=== PATIENT | female | born 1965 | race Caucasian/White ===

== ENCOUNTER → 2025-02-24 | Outpatient (CLI) | payer MEDICAID, SELFPAY ==
--- NOTE | 2025-02-24 11:45 | XR_ITS ---
Examination: Screening digital mammography, bilateral Computer aided detection 3-D breast Tomosynthesis, bilateral Date and time of exam: February 24, 2025 1147 hours Compared to mammograms dating to November 09, 2015 Indication: Screening Technique: Nonmagnified MLO, CC views of the breasts to been obtained, reconstructed from 3-D Tomosynthesis images. R2 computer aided detection program utilized for evaluation of suspicious masses and/or abnormal calcifications. 3-D Tomosynthesis images obtained. Findings: Scattered areas of fibroglandular density Stable focal asymmetry upper outer right breast No interval suspicious masses Impression: BI-RADS category II: Benign Findings. Recommend 1 year follow-up mammogram.
== END | disposition home or self-care (01) ==
LOC: CDIM 11:34
PROVIDERS: Referring Provider Physician Assistant Medical; Visit Provider Physician Assistant Medical
DX: Z12.31 Encounter for screening mammogram for malignant neoplasm of breast (principal); N64.89 Other specified disorders of breast; R92.323 Mammographic fibroglandular density, bilateral breasts
CPT/HCPCS: 77063; 77067

== ENCOUNTER 2025-08-26 07:57 | Emergency (ER) | payer MEDICAID, SELFPAY ==
[2025-08-26 08:05] VITALS: BP 97/63; PULSE 88; RESP 18; TEMP 36.8; O2SAT 99
[2025-08-26 08:06] VITALS: BMI 23.8
--- NOTE | 2025-08-26 08:10 | EDNOTE_ITS ---
<Statement entered by Olga Greer MD - 08/26/25 17:46> As co-signing physician, I was present and available for consult prn. I concur with the plan and care as documented by the midlevel provider. ED Fall Injury RME/HPI General Chief Complaint: Fall Stated Complaint: DIZZY W/ FALL HITTING R) RIBS ON BATH TUB MONDAY Time Seen by Provider: 08/26/25 08:07 Source: patient Arrival date/time: 08/26/25 07:57 60-year-old female with a history of hypotension on midodrine, hyperlipidemia presents to the emergency room with a chief complaint of tenderness to her right rib cage after a ground-level fall that occurred on Monday. Mode of arrival: ambulatory Limitations: no limitations Related Data Home Medications ?Medication ?Instructions ?Recorded ?Confirmed albuterol sulfate 90 mcg/actuation 1 puff inhalation Q 6H 09/25/19 05/17/22 aerosol inhaler (ProAir HFA) ergocalciferol (vitamin D2) 1,250 50,000 unit PO QWEEK 09/25/19 05/17/22 mcg (50,000 unit) capsule (Vitamin D2) tolterodine 4 mg capsule,extended 4 mg PO QDAY 0 05/17/22 release 24 hr budesonide-formoterol HFA 160 1 puff inhalation BID 05/17/22 mcg-4.5 mcg/actuation aerosol inhaler pravastatin 20 mg tablet 20 mg PO QDAY 01/03/2205/17 docusate sodium 100 mg tablet 100 mg PO QDAY 01/24/22 05/17/22 gabapentin 600 mg tablet 600 tab PO TID 01/24/2203/02 hydrocodone 7.5 mg-acetaminophen 1 tab PO BID PRN Pain 01/24/22 05/17/22 325 mg tablet Held on 05/17/22. Instructions: Resume on 05/18/22. albuterol 90 mcg/actuation aerosol 90 mcg inhalation Q DAY 05/17/22 05/17/22 inhaler Previous Rx's ?Medication ?Instructions ?Recorded pantoprazole 40 mg tablet,delayed 40 mg PO BID #60 tab s 05/17/22 release (Protonix) Allergies Allergy/AdvReac Type Severity Reaction Status Date / Time codeine Allergy Intermediate RASH, Verified 08/26/25 08:02 VOMITING Review of Systems Review of Systems Systems Reviewed: All systems reviewed, normal except as documented Constitutional Constitutional: Reports system reviewed and no additional complaints, except as documented, Denies fatigue, Denies fever(s), Denies headache(s) and Denies weakness Eyes Eyes: Reports system reviewed and no additional complaints, except as d ocumented, Denies blurry vision and Denies change in vision ENT Ears, Nose, Mouth, and Throat: Reports system reviewed and no additional complaints, except as documented, Denies otalgia, Denies headache(s), Denies nasal congestion, Denies throat swelling and Denies vertigo Cardiovascular Cardiovascular: Reports system reviewed and no additional complaints, except as documented, Denies chest pain, Denies dyspnea and Denies dyspnea on exertion Respiratory Respiratory: Reports system reviewed and no additional complaints, except as documented, Denies chest congestion, Denies cough, Denies dyspnea, Denies dyspnea on exertion and Denies wheezing Gastrointestinal Gastrointestinal: Reports system reviewed and no additional complaints, except as documented, Denies abdominal pain, Denies cramping, Denies nausea and Denies vomiting Genitourinary Genitourinary: Reports system reviewed and no additional complaints, except as documented Musculoskeletal Musculoskeletal: Reports system reviewed and no additional complaints, except as documented and Denies back pain Integumentary/Breasts Skin/Breast: Reports system reviewed and no additional complaints, except as documented and Denies wounds Neurologic Neurologic: Reports system reviewed and no additional complaints, except as documented, Denies confusion, Denies headache(s), Denies lack of coordination, Denies vertigo and Denies weakness Psychiatric Psychiatric: Reports system reviewed and no additional complaints, except as documented, Denies anxiety, Denies confusion, Denies depression, Denies pa ranoia, Denies suicidal ideation and Denies tactile hallucinations Endocrine Endocrine: Reports system reviewed and no additional complaints, except as documented and Denies fatigue Hematologic/Lymphatic Hematologic/Lymphatic: Reports system reviewed and no additional complaints, except as documented and Denies lymphadenopathy Allergic/Immunologic Allergic/Immunologic: Reports system reviewed and no additional complaints, except as documented, Denies throat swelling, Denies urticaria and Denies wheezing Past Medical History Past Medical History NEUROLOGIC: Positive Migraine; Negative Neurological Disorders or Seizures CARDIAC: Positive Cardiac Disorders and Hypercholesterolemia; Negative Congestive Heart Failure, Edema, Cellulitis (SCRATCHES ANA ARMS DUE TO RABBITS ) or Varicose Veins RESPIRATORY: Positive Chronic Obstructive Pulmonary Disease (COPD) (HAS INHALER) and Asthma; Negative Tuberculosis or Sleep Apnea GASTROINTESTINAL: Positive Gastrointestinal Disorders and Gall Bladder Disease (LAP); Negative Hepatitis GENITOURINARY: Positive Genitourinary Disorders (Bladder prolapse FOR THIS PROC); Negative Renal Disease REPRODUCTIVE: Positive Previous Pregnancies (X7) MUSCULOSKELETAL: Positive Musculoskeletal Disorders and Arthritis; Negative Carpal Tunnel Syndrome ENDOCRINE: Negative Endocrine Disorders, Diabetes Mellitus Type 1 or Diabetes Mellitus Type 2 HEMATOLOGIC: Negative Blood Disorders or Sickle Cell Disease OTHER HISTORY: Positive Chicken Pox, Measles and Mumps; Negative Hospitalization, Autoimmune Disease, Shingles, Falls, Blood Transfusions, Blood Transfusion Reaction, Anesthesia Reactions, Organ Transplant, Chemotherapy, Radiation Therapy, MRSA, Human Immunodeficiency Virus (HIV), Rubella (Austrian Measles), Pertussis, Clostridium Difficile or Cancer Family History FAMILY HISTORY: Positive Family Psychiatric Problems (SISTER (DEPRESSION,ANXIETY)), Family Respiratory Disorders (MOTHER (COPD)), Family Cardiac Disorders (FATHER (PACEMAKER)), Family Gastrointestinal Problems (SISTERS (GALL BLADDER),MOTHER (COLON)), Family Cancer (FATHER (SKIN)) and Family Surgery (MOTHER,SISTERS,FATHER,BROTHER); Negative Family Anesthesia Reaction Surgical History SURGICAL: Positive Gastric Bypass Surgery (2018), Hysterectomy (TVH WITH ANA SALPING), Tubal Ligation and Section (x1); Negative Cardiac Surgery, Pacemaker, Endocrine Surgery, Ear Surgery, Eye Surgery, Nose Surgery, Oral Surgery, Throat Surgery, Joint Replacement, Amputation, Open Reduction Internal Fixation, Arthroscopy, Neurologic Surgery or Organ Transplant Social History SMOKING STATUS: Never smoker SECOND HAND EXPOSURE: No ED Exam General Limitations: Present no limitations General appearance: Present alert and in no apparent distress Head Head exam: Present atraumatic Eye Eye exam: Present normal appearance, PERRL and EOMI ENT ENT exam: Present normal exam, normal oropharynx and mucous membranes moist Neck Neck exam: Present normal inspection, full ROM and trachea midline Chest Chest inspection: Present normal inspection and symmetric chest wall rise Expanded Chest Exam Breast: right: tenderness Respiratory Respiratory exam: Present normal lung sounds bilaterally; Absent respiratory distress, wheezes, stridor, accessory muscle use or prolonged expiratory phase Cardiovascular Cardiovascular exam: Present regular rate, normal rhythm and normal heart sounds Abdominal Exam Abdominal exam: Present soft and normal bowel sounds Extremities Exam Extremities exam: Present normal inspection and full ROM Back Exam Back exam: Present normal inspection and full ROM Neurological Exam Neurological exam: Present alert, oriented X3 and CN II-XII intact Psychiatric Psychiatric exam: Present normal affect and normal mood Skin Skin exam: Present warm, dry, intact and normal color Course Quality Measures none Orders Category Date Time Status sling [Splint / Immobilizer] STAT Care 08/26/25 10:34 Completed XR ribs RT min 3V w CXR1V Stat Exams 08/26/25 08:10 Completed Ketorolac Inj [Toradol Inj] Med 08/26/25 08:10 Discontinued 30 mg IM X1 ONE Vital Signs Vital signs: Vital Signs Temperature 98.2 F 08/26/25 08:05 Pulse Rate 88 08/26/25 08:05 Respiratory Rate 18 08/26/25 08:05 Blood Pressure 97/63 08/26/25 08:05 Pulse Oximetry (%) 99 08/26/25 08:05 Oxygen Delivery Method Room Air 08/26/25 08:05 Fall MDM Narrative MDM Narrative:: 60-year-old female with a history of hypotension on midodrine, hyperlipidemia presents to the emergency room with a chief complaint of tenderness to her right rib cage after a ground-level fall that occurred on Monday. Patient is hemodynamically stable and in no apparent distress she is nontachycardic nontachypneic afebrile. Patient states she has a history of hypotension and fell on Monday due to dizziness from that. Patient states she does not want any blood work or workup and is just here to get imaging of her ribs. Physical examination shows clear bilateral lung sounds there is no wheezing or any abnormal breath sounds. A chest x-ray was completed and shows no pneumothorax or no hemothorax but does show an acute fracture of the 10th rib on the right side. The patient was given a sling and given an incentive spirometer Patient was discharged and educated to follow-up with primary care provider in the next 24 to 48 hours and return to the emergency room for any evidence of worsening signs or symptoms Patient data External records reviewed:: [facility] previous records Clinical information provided by:: patient Social determinants that could affect healthcare access:: none Patient has the following chronic illnesses:: No chronic illness How is presenting disease/condition affected by chronic disease/condition?: no chronic disease Evaluation data The following diagnostics were reviewed and interpreted by me:: lab results and radiology exam(s) Lab and/or radiology exams considered but not ordered:: Labs and radiology exams considered and ordered Interpretation Summary: X-ray ribs-Findings: Normal heart size No pneumothorax Moderate osteopenia Acute fracture right 10th rib at the mid axillary line without significant displacement IMPRESSION: No pneumothorax pulmonary contusion or hemothorax Acute nondisplaced fracture right 10th rib in the midaxillary line Medications / Prescriptions Medications or Prescriptions considered but not ordered:: Medication given Medication administrations:: Medication Administration History Discontinued Medications Ketorolac Tromethamine (Ketorolac Inj 60 Mg/2 Ml Vial) 30 mg IM X1 ONE Stop: 08/26/25 08:11 Last Admin: 08/26/25 08:20 Dose: 30 mg Documented By: VG Medication given Consultations Consultation(s) initiated? (list below): No Diagnosis Fall Differential Diagnosis: other (Acute rib fracture/rib contusion/pneumothorax/hemothorax) Most likely diagnosis given after review of the tests above:: Acute rib fracture Admission Indicated Admission indicated?: not indicated Admission Request Was there a request for admission?: No Disposition Plan Disposition Plan: Discharge Discharge Attestation Discharge Attestation: The patient and all family members were given an opportunity to ask questions and understood the discharge instructions. Discharge instructions specifically effects, indications for sooner follow up or return to the emergency department, and the expected course of current diagnosis. Patient condition: Stable Discharge Plan Plan Patient Disposition: HOME (Self Care) Discharge Disposition comment: Stable Prescriptions/Referrals Prescriptions/Med Rec: No Action tolterodine 4 mg Capsule,Extended Release 24hr 4 mg PO QDAY ergocalciferol (vitamin D2) [Vitamin D2] 1,250 mcg (50,000 unit) Capsule 50,000 unit PO QWEEK albuterol sulfate [ProAir HFA] 90 mcg/actuation Hfa Aerosol Inhaler 1 puff INHALATION Q6H pravastatin 20 mg tablet 20 mg PO QDAY Patient Comments: TAKE 1 TABLET BY MOUTH EVERY DAY FOR 90 DAYS budesonide-formoterol 160-4.5 mcg/actuation HFA aerosol inhaler 1 puff INHALATION BID Patient Comments: TAKE 2 PUFFS BY MOUTH TWICE A DAY gabapentin 600 mg tablet 600 tab PO TID Patient Comments: TAKE 1 TABLET BY MOUTH THREE TIMES A DAY hydrocodone-acetaminophen 7.5-325 mg Tablet 1 tab PO BID PRN (Reason: Pain) docusate sodium 100 mg Tablet 100 mg PO QDAY albuterol 90 mcg/actuation Aerosol 90 mcg INHALATION QDAY pantoprazole [Protonix] 40 mg Tablet,Delayed Release (Dr/Ec) 40 mg PO BID Qty: 60 2RF Rx Instructions: Take 1 tablet by mouth twice daily Referrals: Tashia Godinez PA-C [Primary Care Provider] - In 1 week Problem List Clinical Impression: Closed rib fracture Patient/Caregiver Discharge Instructions Education Materials: ED Rib Contusion or Minor Fracture Additional Instructions: Please follow-up with your primary care provider in the next 24 to 48 hours X-rays of your ribs showed a fracture of your 10th rib on your right side Please keep your sling in place as this will help you with your comfort For any evidence of worsening signs or symptoms please return to the emergency room immediately Print Language: Chinese Stand Alone Forms: [employer] Award Info., Work/School Release, Patient Portal Info Letter PA/PADDY Supervising Physician PA/PADDY Supervising Physician: Dr. Kimble
--- NOTE | 2025-08-26 08:10 | XR_ITS ---
Examination: Ribs, right, with PA chest, 5 views Technique: Chest PA, RIBS AP, RPO, LPO, AP coned lower ribs 5 views Exam date and time: August 26, 2025, 0931 hours INDICATIONS: Patient fell 3 days ago with injury of the right chest, right rib pain Findings: Normal heart size No pneumothorax Moderate osteopenia Acute fracture right 10th rib at the mid axillary line without significant displacement IMPRESSION: No pneumothorax pulmonary contusion or hemothorax Acute nondisplaced fracture right 10th rib in the midaxillary line
[2025-08-26] MEDS: KETOROLAC INJ 60 MG/2 ML VIAL 30 MG IM (08:20)
[2025-08-26 10:29] VITALS: BP 91/62; PULSE 83; RESP 18; TEMP 36.7; O2SAT 98
== END 2025-08-26 10:57 | disposition home or self-care (01) ==
PROVIDERS: Emergency Provider Nurse Practitioner Family; PCP Physician Assistant Medical
DX: S22.31XA Fracture of one rib, right side, initial encounter for closed fracture (principal); W18.30XA Fall on same level, unspecified, initial encounter
CPT/HCPCS: 71101; 96372; 99283; A4565; J1885